=== PATIENT | male | born 1940 | race Caucasian/White ===

== ENCOUNTER → 2017-12-23 09:56 | Outpatient (CLI) | payer MEDICARE, OTHER, SELFPAY ==
[2017-12-23 12:59] LABS: Anion Gap 5 (5-15); BUN 15 mg/dL (7-18); BUN/Creat Ratio 13.3 RATIO (10-20); Calcium,Total 9.1 mg/dL (8.5-10.1); Chloride 103 mmol/L (98-107); Cholesterol 203 mg/dL (200); Creatinine, Serum 1.13 mg/dL (0.70-1.30); EST Glomerular Filtration Rate 67 mL/min (>60); Est Glom Filt Rate - Afr Amer 81 mL/min (>60); Glucose 100 mg/dL (74-106); High Density Lipoprotein 43 mg/dL; PSA,Total - Annual Screen 1.31 ng/mL (0.00-4.00); Potassium 3.9 mmol/L (3.5-5.1); Sodium Level 138 mmol/L (136-145); Triglycerides 115 mg/dL; Very Low Density Lipoprotein 23 mg/dL (5-40)
[2017-12-23 13:00] LABS: Vitamin D,25 Hydroxy 70.5 ng/mL (29.95-100.01)
== END ==
PROVIDERS: Family Provider Family Medicine; PCP Family Medicine; Visit Provider Family Medicine
DX: Z00.00 Encounter for general adult medical examination without abnormal findings (principal); Z12.5 Encounter for screening for malignant neoplasm of prostate
CPT/HCPCS: 36415; 80048; 80061; 82306; 84153; G0103

== ENCOUNTER → 2018-12-24 09:16 | Outpatient (CLI) | payer MEDICARE, OTHER, SELFPAY ==
[2018-12-24 10:49] LABS: Anion Gap 3 (5-15); BUN 16 mg/dL (7-18); Calcium,Total 9.4 mg/dL (8.5-10.1); Chloride 105 mmol/L (98-107); Cholesterol 207 mg/dL (200); Creatinine, Serum 1.14 mg/dL (0.70-1.30); EST Glomerular Filtration Rate 66 mL/min (>60); Est Glom Filt Rate - Afr Amer 80 mL/min (>60); Glucose 101 mg/dL (74-106); High Density Lipoprotein 47 mg/dL; Potassium 3.8 mmol/L (3.5-5.1); Sodium Level 139 mmol/L (136-145); Triglycerides 150 mg/dL; Very Low Density Lipoprotein 30 mg/dL (5-40)
== END ==
PROVIDERS: Family Provider Family Medicine; PCP Family Medicine; Referring Provider Family Medicine; Visit Provider Family Medicine
DX: Z00.00 Encounter for general adult medical examination without abnormal findings (principal)
CPT/HCPCS: 36415; 80048; 80061

== ENCOUNTER → 2019-12-26 09:20 | Outpatient (CLI) | payer MEDICARE, OTHER, SELFPAY ==
[2019-12-26 12:36] LABS: Alanine Aminotransfer ALT/SGPT 31 U/L (16-61); Cholesterol 199 mg/dL (200); Creatinine, Serum 1.17 mg/dL (0.70-1.30); EST Glomerular Filtration Rate 64 mL/min (>60); Est Glom Filt Rate - Afr Amer 78 mL/min (>60); High Density Lipoprotein 56 mg/dL; Triglycerides 138 mg/dL; Very Low Density Lipoprotein 28 mg/dL (5-40)
== END ==
PROVIDERS: PCP Family Medicine; Visit Provider Family Medicine
DX: Z13.220 Encounter for screening for lipoid disorders (principal)
CPT/HCPCS: 36415; 80061; 82565; 84460

== ENCOUNTER → 2020-12-28 09:05 | Outpatient (CLI) | payer MEDICARE, OTHER, SELFPAY ==
[2020-12-28 10:38] LABS: Anion Gap 5 (5-15); BUN 16 mg/dL (7-18); BUN/Creat Ratio 13.8 RATIO (10-20); Calcium,Total 9.6 mg/dL (8.5-10.1); Chloride 103 mmol/L (98-107); Cholesterol 209 mg/dL (200); Creatinine, Serum 1.16 mg/dL (0.70-1.30); EST Glomerular Filtration Rate 65 mL/min (>60); Est Glom Filt Rate - Afr Amer 78 mL/min (>60); Glucose 105 mg/dL (74-106); High Density Lipoprotein 47 mg/dL; PSA,Total - Annual Screen 1.52 ng/mL (0.00-4.00); Potassium 3.9 mmol/L (3.5-5.1); Sodium Level 139 mmol/L (136-145); Triglycerides 124 mg/dL; Very Low Density Lipoprotein 25 mg/dL (5-40)
== END ==
PROVIDERS: PCP Family Medicine; Referring Provider Family Medicine; Visit Provider Family Medicine
DX: Z00.00 Encounter for general adult medical examination without abnormal findings (principal); Z12.5 Encounter for screening for malignant neoplasm of prostate
CPT/HCPCS: 36415; 80048; 80061; 84153; G0103

== ENCOUNTER → 2022-01-01 | Outpatient (CLI) | payer MEDICARE, OTHER, SELFPAY ==
[2022-01-01 12:26] LABS: Anion Gap 5 (5-15); BUN 15 mg/dL (7-18); BUN/Creat Ratio 14.9 RATIO (10-20); Calcium,Total 9.6 mg/dL (8.5-10.1); Chloride 104 mmol/L (98-107); Cholesterol 178 mg/dL (200); Creatinine, Serum 1.01 mg/dL (0.70-1.30); EST Glomerular Filtration Rate 76 mL/min (>60); Est Glom Filt Rate - Afr Amer 92 mL/min (>60); Glucose 109 mg/dL (74-106); High Density Lipoprotein 46 mg/dL; PSA,Total - Annual Screen 1.57 ng/mL (0.00-4.00); Potassium 3.9 mmol/L (3.5-5.1); Sodium Level 137 mmol/L (136-145); Triglycerides 109 mg/dL; Very Low Density Lipoprotein 22 mg/dL (5-40)
== END | disposition home or self-care (01) ==
LOC: MFPLAB 10:26
PROVIDERS: PCP Family Medicine; Referring Provider Family Medicine; Visit Provider Family Medicine
DX: Z00.00 Encounter for general adult medical examination without abnormal findings (principal)
CPT/HCPCS: 36415; 80048; 80061; 84153; G0103

== ENCOUNTER 2022-02-12 11:51 | Inpatient (IN) | payer MEDICARE, OTHER, SELFPAY ==
[2022-02-12] VITALS (10 sets, daily range): BP systolic 99–146; BP diastolic 58–82; PULSE 52–110; RESP 14–18; TEMP 36.1–36.9; O2SAT 93–96; BMI 24.0; BMI 24.6
--- NOTE | 2022-02-12 | PROS_PTH ---
PATIENT: LAILA LANDRY LOC: [facility] U#:[id number] AGE/SX: 81/M ROOM: [facility] RE02/13/[address]: Dr. Justin Barraza MD : [id number] BED: 1 DIS: 02/14/2022 SPEC #: [id number] RECD: 02/12/22 16:16 STATUS: IVONNE SHERIDAN #: [id number] LUIZA: 02/12/22 00:[address]: Justin Barraza DEPT: SURGICAL PATHOLOGY RECD BY: Joseph Og ENTERED: 02/13/22 08:24 SP TYPE: TURP OTHR DR: Dr. Maxwell Barker MD Tissues: Prostate, NOS Procedures: Surgery Specimen Level IV HEADER OPERATION: Cystoscopy, transurethral resection of prostate PRE-OP DIAGNOSIS: BPH with lower urinary symptoms, urinary retention TISSUE SUBMITTED: Prostate tissue MICROSCOPIC DIAGNOSIS Prostate tissue, transurethral resection: Benign prostatic hyperplasia, glandular and stromal type. Chronic inflammation. CATHIE:manjeet 02/14/2022 MICROSCOPIC DESCRIPTION Slides are reviewed. GROSS DESCRIPTION Received is one container labeled with the patient's name and designated prostate tissue. The specimen consists of multiple irregular fragments of pink-tavares, rubbery, soft tissue that in aggregate weigh 10.5 gm and measure in aggregate 6 x 6 x 1.5 cm. The entire specimen is submitted in ten cassettes. / CATHIE:manjeet TC:5 CPT: 52366
[2022-02-12] MEDS: Lactated Ringers 1,000 ML 15 ML IV ×2 (10:25→11:51)
[2022-02-12] MEDS: Cefazolin 2 GM in 0.9% Normal Saline 100 ML IV (11:50)
--- NOTE | 2022-02-12 11:51 | DCINST_ITS ---
Discharge Instructions Diet Discharge Diet: No restrictions, Light diet - advance as tolerated and Soft diet Activity Discharge Activity: Return to Normal Activity Dressing / Incision Call your doctor if your incision/area has: Sudden Increased Bleeding Follow Up Care Please Follow Up With: Justin Barraza MD When: 2 weeks Test Results: Test results from this visit will be discussed in further detail at your follow- up appointment, if applicable. Discharge Plan Admission Primary Reason for Your Visit: turp Attending Provider: Justin Barraza Primary Care Provider: Maxwell Barker Discharge Orders/Prescriptions Prescriptions: New ciprofloxacin HCl [Cipro] 500 mg tablet 500 mg PO BID Qty: 10 0RF Continued multivitamin Tablet 1 tab PO DAILY Vitamin C 1,000 mg Tablet Extended Release 1,000 mg PO BID calcium carbonate-vitamin D3 600 mg-5 mcg (200 unit) Tablet 1 tab PO BID tamsulosin 0.4 mg capsule 0.4 mg PO DAILY vitamin B complex Tablet 1 tab PO DAILY coenzyme Q10 100 mg Capsule 100 mg PO DAILY omega-3 fatty acids Capsule 1,000 mg PO DAILY cholecalciferol (vitamin D3) [Vitamin D3] 125 mcg (5,000 unit) Tablet 125 mcg PO DAILY vitamin Y42-lowdn acid 500-400 mcg Tablet 1 tab PO DAILY Rx Instructions: administer with a meal Rhodiolia Rosea Root 400 mg PO/SL DAILY Held aspirin 81 mg Capsule 81 mg PO DAILY Hold Instructions: Resume on 02/26/22. Other Ambulatory Orders: 12 Lead EKG (Routine) Timeframe: 20220207 Location: None Selected Ordered By: Dr. Fransisco Simpson Referrals / Follow Up: Justin Barraza MD [Med Staff - Active Staff] - Maxwell Barker MD [Primary Care Provider] - Disposition Disposition (needs filled in before D/C Order can be placed): Home, Self Care
--- NOTE | 2022-02-12 12:42 | PCM.OPRPT ---
Report of Operation Date of Procedure: 02/12/22 Pre-Operative Diagnosis: BPH Post-Operative Diagnosis: same Surgery/Procedure Performed:: turp Description of Surgical Findings:: In the preoperative setting I discussed with the patient how the surgery would be done with expect afterwards. We discussed how a prostate resection is done and we discussed the risk of the surgery including, bleeding, infection, retrograde ejaculation, changes with ejaculation or intercourse,. We discussed the possibility that the resection of the prostate may not alleviate his urinary symptoms. We discussed the small risk of developing scar tissue along the urethral channel and strictures. We also discussed the chance of the prostate could grow back and he may need further surgery or treatment in the future for prostate problems. Patient was taken back to the operating room, timeout procedure was performed, he was identified and marked and placed on the operating room table. He underwent general anesthesia. He was placed in dorsolithotomy position. Penis and testicles were prepped and draped in usual sterile fashion. Went into the bladder using the visual obturator with a resectoscope. Once inside the bladder identified the right and left ureteral orifice. I then identified the prostate and the anatomy of the prostate. I marked out the area of the sphincter and the verumontanum was identified. I then proceeded with the prostate resection first resected the median lobe. And then resected the right lobe of the prostate. Then to resect the left lobe of the prostate. I then resected the apical tissue of the prostate. This was a complete resection of all obstructive tissue to improve voiding and relieve obstruction. I then made sure that there was no injury to the sphincter or the verumontanum was still intact. At the end of the resection all the chips were Ellik out of the bladder. I then identified the left and right ureteral orifice and these were confirmed to be in good position and effluxing and not injured. The resectoscope was removed, a 22 [place] catheter was placed into the bladder on continuous irrigation. And the urine was fairly light pink color and draining normally. He was taken back to the PACU in good condition. Surgeon: Justin Barraza Type of Anesthesia: General Drains: rawls Admit VTE Documentation VTE Present on Admission: No VTE Mechan Device Prophylaxis: SCD's VTE Pharm Prophylaxis ordered?: No
[2022-02-12] MEDS: 0.9% Normal Saline 1,000 ML 125 ML IV (20:13)
[2022-02-12] MEDS: Docusate Sodium 100 MG Capsule 200 MG PO (20:17)
[2022-02-12] MEDS: Ciprofloxacin 400 MG/200 ML BAG 200 MG IV (20:18)
[2022-02-12] MEDS: Tamsulosin HCl 0.4 MG Capsule PO (20:24)
[2022-02-13 00:13] VITALS: BP 93/63; PULSE 69; RESP 14; TEMP 36.6; O2SAT 97
--- NOTE | 2022-02-13 00:30 | NURSING ---
Took over care for this patient at this time. No needs voiced. CBI line running patent, output bright red. no pain at this time, patient resting in bed comfortably, call light within reach.
[2022-02-13 03:20] VITALS: BP 91/60; PULSE 74; RESP 16; TEMP 36.9; O2SAT 95
[2022-02-13] MEDS: 0.9% Normal Saline 1,000 ML 125 ML IV ×3 (04:13→20:49)
--- NOTE | 2022-02-13 07:29 | PCM.PN.GU ---
Subjective Subjective urine not clear, continue with CBI. Objective Data Objective Data Vital Signs: Vital Signs Temp Pulse Resp BP Pulse Ox O2 Del Method 98.5 F 74 16 91/60 95 Room Air 02/13/22 03:20 02/13/22 03:20 02/13/22 03:20 02/13/22 03:20 02/13/22 03:20 02/13/22 03:22 Oxygen Delivery Method Room Air Weight: 75.75 kg Body Mass Index (BMI) 24.6 Intake & Output: Intake and Output for Last 24 Hours 02/11/22 02/12/22 02/13/22 23:59 23:59 23:59 Intake Total 2135.5 / 2135.5 1000 / 1000 Output Total 4000 / 4000 900 / 900 Balance -1864.5 / -1864.5 100 / 100
[2022-02-13] MEDS: Ciprofloxacin 400 MG/200 ML BAG 200 MG IV (07:49)
--- NOTE | 2022-02-13 08:17 | NURSING ---
manually irrigated for many clots.
[2022-02-13 09:00] VITALS: BP 100/68; PULSE 71; RESP 16; TEMP 36.7; O2SAT 97
[2022-02-13] MEDS: Docusate Sodium 100 MG Capsule 200 MG PO ×2 (10:46→20:45)
[2022-02-13 14:42] VITALS: BP 94/56; PULSE 62; RESP 16; TEMP 36.6; O2SAT 99
[2022-02-13 20:36] VITALS: BP 113/72; PULSE 60; RESP 18; TEMP 36.6; O2SAT 96
[2022-02-13] MEDS: Tamsulosin HCl 0.4 MG Capsule PO (20:45)
[2022-02-14 01:40] VITALS: BP 107/69; PULSE 70; RESP 18; TEMP 36.7; O2SAT 94
[2022-02-14] MEDS: 0.9% Normal Saline 1,000 ML 125 ML IV (04:46)
[2022-02-14 04:50] VITALS: BP 118/77; PULSE 62; RESP 18; TEMP 36.7; O2SAT 94
--- NOTE | 2022-02-14 07:48 | PCM.PN.GU ---
Subjective Subjective Status post TURP will remove the catheter today for voiding trial home if he is able to urinate okay he may have to go home with a catheter Objective Data Objective Data Vital Signs: Vital Signs Temp Pulse Resp BP Pulse Ox O2 Del Method 98.1 F 62 18 118/77 94 Room Air 02/14/22 04:50 02/14/22 04:50 02/14/22 04:50 02/14/22 04:50 02/14/22 04:50 02/14/22 04:50 Oxygen Delivery Method Room Air Weight: 75.75 kg Body Mass Index (BMI) 24.6 Intake & Output: Intake and Output for Last 24 Hours 02/12/22 02/13/22 02/14/22 23:59 23:59 23:59 Intake Total 2135.5 / 2135.5 2958.33 / 2958.33 993.75 / 993.75 Output Total 4000 / 4000 5050 / 5050 400 / 400 Balance -1864.5 / -1864.5 -2091.67 / -2091.67 593.75 / 593.75
[2022-02-14 08:12] VITALS: BP 116/75; PULSE 63; RESP 18; TEMP 36.6; O2SAT 96
[2022-02-14] MEDS: Docusate Sodium 100 MG Capsule 200 MG PO (08:15)
--- NOTE | 2022-02-14 10:15 | CASEMGMT ---
RN?CM?POPCORN CANDY MAKER?CM?to room to meet with patient for initial transition planning/care coordination?assessment.?RN?CM?introduced self and role at [facility].? Pt voices understanding and consents to?assessment?at this time.? Pt resting in bed in no distress at this time.? Pt is A/O at this time and answers all questions appropriately.?? Care providers, pharmacy, and demographics verified/updated at this time.? PCP:?Dr Barker Specialists:?Dr Barraza Preferred Pharmacy:?[facility], [place] Insurance:?MCR, Prescription Benefit:??Yes, Living Will/HPOA:??Pt has both LW and HCPOA, who is his , Joan EGANOK:?, Joan Living Arrangements:?Lives w/ in one-story home w/3 steps to enter. Independent. Pt and share home mgmt tasks. Transportation:?Pt states drives self and states no transportation concerns at this time.?? also drives. DME: ? Denies using any DME and denies needs.?? HHC/SNF:?No hx of either. No needs identified. Pt wishes to return home and states has no concerns with going home at time of discharge.?CM?to follow for any further discharge planning/needs.? Pt voices no further concerns/needs at this time.? Advised pt to ask for?CM?if any further questions/concerns/needs arise.? Voices understanding.? PLAN:??Home Mick BSN?RN?CM
--- NOTE | 2022-02-14 11:59 | CASEMGMT ---
RN BHAVESH made aware pt will dc with catheter. MIGUEL ÁNGEL OSPINA in to pt room, pt states he has had a catheter before and is comfortable taking care of it. Pt denies any homegoing needs at this time.
[2022-02-14 12:20] VITALS: BP 116/75; PULSE 63; RESP 16; TEMP 36.6; O2SAT 96
--- NOTE | 2022-02-19 15:48 | HP.PCM_ITS ---
HPI - General General Date of Admission: 02/13/22 HPI Narrative LAILA LANDRY, is a 81 M who presents for transurethral section of the prostate [facility] Medical History Arthritis History of amputation of finger History of stress test Non-smoker Prostate disease Wears dentures Home Medications Rhodiolia Rosea Root 400 mg PO/SL DAILY 02/06/22 [History Last Taken Unknown] ascorbic acid (vitamin C) 1,000 mg tablet,extended release (Vitamin C ER) 1,000 mg PO BID 02/06/22 [History Last Taken Unknown] calcium carbonate 600 mg-vitamin D3 5 mcg (200 unit) tablet 1 tab PO BID 02/06/22 [History Last Taken Unknown] cholecalciferol (vitamin D3) 125 mcg (5,000 unit) tablet (Vitamin D3) 125 mcg PO DAILY 02/06/22 [History Last Taken Unknown] coenzyme Q10 100 mg capsule 100 mg PO DAILY 02/06/22 [History Last Taken Unknown] multivitamin 1 tab PO DAILY 02/06/22 [History Last Taken Unknown] omega-3 fatty acids 1,000 mg PO DAILY 02/06/22 [History Last Taken Unknown] tamsulosin 0.4 mg capsule 0.4 mg PO DAILY 02/06/22 [History Last Taken Unknown] vitamin B complex 1 tab PO DAILY 02/06/22 [History Last Taken Unknown] vitamin B12 500 mcg-folic acid 400 mcg tablet 1 tab PO DAILY 02/06/22 [History Last Taken Unknown] aspirin 81 mg capsule 81 mg PO DAILY 02/12/22 [History Last Taken Unknown] ciprofloxacin HCl 500 mg tablet (Cipro) 500 mg PO BID #10 tabs 02/12/22 [Rx Last Taken Unknown] Allergy/AdvReac Type Severity Reaction Status Date / Time No Known Allergies Allergy Verified 02/12/22 10:48 Surgical History History of bilateral cataract extraction Social History Smoking Status: Never smoker Vital Signs Vital Signs Vital Signs: Weight Weight: 75.75 kg Body Mass Index (BMI) 24.6
== END 2022-02-14 12:51 | disposition home or self-care (01) | DRG 714 ==
LOC: SDC 13:14 → MS3 13:14
PROVIDERS: Admitting Provider Urology; PCP Family Medicine; Referring Provider Urology; Visit Provider Urology
PROC: 0VT08ZZ Resection of Prostate, Via Natural or Artificial Opening Endoscopic (ICD-10-PCS; principal; 2022-02-12 11:45)
DX: N40.1 Benign prostatic hyperplasia with lower urinary tract symptoms (principal); R33.8 Other retention of urine; Z79.82 Long term (current) use of aspirin; Z79.899 Other long term (current) drug therapy
CPT/HCPCS: 88305; 93005; 99251; J7030; J7120; G0463; J0744; J2405

== ENCOUNTER → 2022-10-23 | Outpatient (CLI) | payer MEDICARE, OTHER, SELFPAY ==
[2022-10-23 17:35] LABS: Absolute Lymphocyte Count 2.64 X10^3/uL (0.83-4.51); Absolute Neutrophil Count 3.5 X10^3/uL (2.0-7.7); Basophil# 0.06 X10^3/uL; Basophil% 0.9 % (0-1); Eosinophil# 0.19 X10^3/uL; Eosinophils% 2.7 % (0-5); Hematocrit 41.3 % (40-54); Hemoglobin 13.5 g/dL (13.0-16.5); Lymphocyte # 2.64 X10^3/ul (0.83-4.51); Lymphocyte % 37.5 % (19-41); Mean Corp Hgb Conc 32.7 g/dL (32-36); Mean Corpuscular Hgb 32.7 pg (27.0-32.0); Mean Platelet Vol. 10.5 fl (6.2-12.0); Monocyte# 0.59 X10^3/uL; Monocyte% 8.4 % (0-10); NRBC Flagged by Analyzer 0 % (0-5); Neutrophil # 3.54 X10^3/uL (2.7-7.7); Neutrophil % 50.2 % (47-70); Platelet Count 251 K/mm3 (150-450); RBC Distribution Width CV 12.1 % (11.6-14.6); RBC Distribution Width SD 44.8 fl (35.1-43.9); Red Blood Count 4.13 M/mm3 (4.6-6.2)
[2022-10-23 17:57] LABS: Erythrocyte Sedimentation Rate 18 mm/hr (0-20)
[2022-10-23 18:05] LABS: Anion Gap 5 (5-15); BUN 10 mg/dL (7-18); BUN/Creat Ratio 10.5 RATIO (10-20); CRP < 2.90 mg/L (0.0-3.0); Calcium,Total 9.1 mg/dL (8.5-10.1); Chloride 106 mmol/L (98-107); Creatinine, Serum 0.95 mg/dL (0.70-1.30); EST Glomerular Filtration Rate 81 mL/min (>60); Est Glom Filt Rate - Afr Amer 98 mL/min (>60); Glucose 99 mg/dL (74-106); Potassium 3.8 mmol/L (3.5-5.1); Sodium Level 140 mmol/L (136-145)
== END | disposition home or self-care (01) ==
LOC: MTLAB 16:29
PROVIDERS: PCP Family Medicine; Visit Provider Family Medicine
DX: R51.9 Headache, unspecified (principal)
CPT/HCPCS: 36415; 80048; 85025; 85652; 86140

== ENCOUNTER → 2023-01-02 | Outpatient (CLI) | payer MEDICARE, OTHER, SELFPAY ==
[2023-01-02 12:56] LABS: Anion Gap 3 (5-15); BUN 11 mg/dL (7-18); BUN/Creat Ratio 10.8 RATIO (10-20); Chloride 106 mmol/L (98-107); Cholesterol 154 mg/dL (200); Creatinine, Serum 1.02 mg/dL (0.70-1.30); EST Glomerular Filtration Rate 75 mL/min (>60); Est Glom Filt Rate - Afr Amer 90 mL/min (>60); Glucose 89 mg/dL (74-106); High Density Lipoprotein 42 mg/dL; PSA,Total - Annual Screen 1.53 ng/mL (0.00-4.00); Sodium Level 136 mmol/L (136-145); Triglycerides 108 mg/dL; Very Low Density Lipoprotein 22 mg/dL (5-40)
== END | disposition home or self-care (01) ==
LOC: MFPLAB 10:53
PROVIDERS: PCP Family Medicine; Visit Provider Family Medicine
DX: Z00.00 Encounter for general adult medical examination without abnormal findings (principal)
CPT/HCPCS: 36415; 80048; 80061; 84153; G0103

== ENCOUNTER 2025-01-13 08:25 | Outpatient (CLI) | payer MEDICARE, OTHER, SELFPAY ==
[2025-01-13 10:51] LABS: Anion Gap 9 (5-15); BUN 11 mg/dL (4-19); BUN/Creat Ratio 10.3 RATIO (10-20); Calcium,Total 9.4 mg/dL (7.6-11.0); Carbon Dioxide 27.4 mmol/L (21.0-32.0); Chloride 103 mmol/L (98-108); Cholesterol 184 mg/dL (<=200); Glucose 102 mg/dL (70-99); Low Density Lipoprotein Calc. 120 mg/dL; PSA,Total - Annual Screen 0.92 ng/mL (0.02-4.00); Potassium 3.9 mmol/L (3.3-5.1); Triglycerides 108 mg/dL; Very Low Density Lipoprotein 22 mg/dL (5-40); cholesterol:hdl ratio screen 4.17
== END 2025-01-13 23:59 | disposition home or self-care (01) ==
LOC: MFPLAB 08:26
PROVIDERS: PCP Family Medicine; Visit Provider Family Medicine
DX: Z00.00 Encounter for general adult medical examination without abnormal findings (principal); R03.0 Elevated blood-pressure reading, without diagnosis of hypertension; Z29.9 Encounter for prophylactic measures, unspecified; Z13.220 Encounter for screening for lipoid disorders
CPT/HCPCS: 36415; 80048; 80061; 84153; G0103